=== PATIENT | female | born 1995 | race Two or more races ===

== ENCOUNTER 2019-02-11 22:32 | Emergency (ER) | payer SELFPAY ==
[~2019-02-11] VITALS: Ht 157.5 cm; Wt 68.0 kg
[2019-02-11 23:45] VITALS: BP 130/84
[2019-02-11 23:46] LABS: Basophils # (auto) 0.1 uL; Basophils % (auto) 0.6 % (0.0-2.0); Eosinophils # (auto) 0 uL; Eosinophils % (auto) 0.4 % (0.0-7.0); Hematocrit 38.8 % (36.0-46.0); Hemoglobin 12.9 g/dL (12.2-16.2); Lymphocytes % (auto) 21.8 % (10.0-50.0); Mean Corpuscular Hemoglobin 29.5 pg (28.0-32.0); Mean Corpuscular Hgb Conc. 33.1 g/dL (32.0-36.0); Monocytes # (auto) 0.7 uL; Monocytes % (auto) 7.1 % (0.0-12.0); Neutrophils # (auto) 6.4 uL; Neutrophils % (auto) 70.1 % (37.0-80.0); Nucleated Red Blood Cells % 0.1 %; Platelet Count (auto) 365 10^3/uL (140-450); Red Blood Cells 4.37 10^6/uL (4.0-5.20); Red Cell Distribution Width 13.8 % (11.8-14.3); White Blood Cell 9.2 10^3/uL (4.4-10.8)
[2019-02-12 00:02] LABS: Chloride 108 mmol/L (98-107); Potassium 3.7 mmol/L (3.5-5.1); Sodium 141 mmol/L (136-145)
[2019-02-12 00:05] LABS: Albumin 3.5 g/dL (3.4-5.0); Anion Gap 9 (5-15); Blood Urea Nitrogen 6 mg/dL (7-18); Carbon Dioxide 24 mmol/L (21-32); Glucose 87 mg/dL (74-106); Lipase 106 U/L (73-393)
[2019-02-12 00:11] LABS: Alanine Aminotransferase 18 U/L (13-56); Alkaline Phosphatase 61 U/L (45-117); Aspartate Aminotransferase 14 U/L (15-37); BUN/Creatinine Ratio 9.5; Bilirubin, Total < 0.1 mg/dL (0.2-1.0); GFR African American 148 mL/min; GFR Non-African American 122 mL/min; Total Protein 7.5 g/dL (6.4-8.2)
== END 2019-02-12 03:31 | disposition left against medical advice (07) ==
LOC: ER 22:40
DX: R10.32 Left lower quadrant pain (principal); R11.2 Nausea with vomiting, unspecified; R42 Dizziness and giddiness; Z53.21 Procedure and treatment not carried out due to patient leaving prior to being seen by health care provider
CPT/HCPCS: 36415; 80053; 83690; 84702; 85025